=== PATIENT | male | born 1960 | race Caucasian/White ===

== ENCOUNTER 2019-10-27 14:08 | Emergency (ER) | payer BC, SELFPAY ==
[2019-10-27 14:23] VITALS: BP 134/80; PULSE 81; RESP 16; TEMP 36.3; O2SAT 99
--- NOTE | 2019-10-27 14:27 | ED.GENADULT ---
HPI - General Adult General Chief complaint: Wound/Laceration Stated complaint: laceration on wrist Time Seen by Provider: 10/27/19 14:28 Source: patient Mode of arrival: ambulatory Limitations: no limitations History of Present Illness HPI narrative: 59-year-old male patient presents to the [facility] with complaints of a laceration to the left wrist. 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 Patient unsure when his last tetanus shot was. Patient denies any numbness or tingling. Patient states he did clean the wound with hydrogen peroxide prior to coming in today. Related Data Home Medications Medication Instructions Recorded Confirmed lisinopril 20 mg DAILY 10/27/19 10/27/19 metformin 500 mg BID 10/27/19 10/27/19 Allergies Allergy/AdvReac Type Severity Reaction Status Date / Time No Known Allergies Allergy Verified 10/27/19 14:18 Review of Systems Review of Systems: Narrative: CONSTITUTIONAL: Denies fever, chills, or sweats. EYES: Denies visual changes, redness, or discharge. ENT: Denies rhinorrhea, congestion, sore throat, or otalgia. CARDIOVASCULAR: Denies chest pain, palpitations, or edema. RESPIRATORY: Denies cough or dyspnea. GASTROINTESTINAL: Denies abdominal pain, nausea, vomiting, or diarrhea. GENITOURINARY: Denies dysuria or hematuria. SKIN: Denies rash or itching. Positive laceration to left wrist MUSCULOSKELETAL: Denies back pain, joint pain, or myalgia. NEUROLOGIC: Denies headache, numbness, or weakness. PSYCHIATRIC: Denies anxiety or depression. [facility] Family History Family History Other Diabetes mellitus Social History Social History Smoking status: Former smoker Alcohol intake: never Gender identity (if verbalized by the patient): Male Comments At the time of my signature I agree with nursing past medical history, surgical, social, and family history. There is no relevant family history pertinent to the presenting complaint. Exam Narrative: Exam Narrative: GENERAL: Well-appearing, well-nourished, and in no acute distress. HEAD: Normocephalic, atraumatic. EYES: PERRLA and EOMI. ENT: Nares clear, no rhinorrhea or epistaxis. Mucous membranes moist. NECK: Supple. No lymphadenopathy CHEST: Clear to auscultation. No respiratory distress. HEART: Regular rate and rhythm. No murmur heard. Normal peripheral pulses. ABDOMEN: Soft, nontender, nondistended, normal active bowel sounds. EXTREMITIES: Normal range of motion. No edema. SKIN: Warm, dry, no rash. Patient has approximately 2 cm laceration to the wrist on the anterior side on the ulnar side. There is no active bleeding at this time. Patient has excellent range of motion to all fingers, and wrist. No numbness or tingling noted. NEURO: No focal deficits. Alert and oriented x3. Course Vital Signs Vital signs: Vital Signs Temperature 36.3 C L 10/27/19 14:23 Pulse Rate 81 10/27/19 14:23 Respiratory Rate 16 10/27/19 14:23 Blood Pressure 134/80 10/27/19 14:23 Pulse Oximetry 99 10/27/19 14:23 Temperature 36.3 C L 10/27/19 14:23 Pulse Rate 81 10/27/19 14:23 Respiratory Rate 16 10/27/19 14:23 Blood Pressure 134/80 10/27/19 14:23 Pulse Oximetry 99 10/27/19 14:23 Vital signs reviewed. The patient has been informed that they may have pre-hypertension or Hypertension based on a BP reading in the department. I recommend that the patient call the primary care provider listed on their discharge instructions or a physician of their choice this week to arrange follow up for further evaluation of possible pre-hypertension or Hypertension Procedures Laceration Laceration 1: Date: 10/27/19 Time: 14:38 Site: upper extremity (Left wrist) Side (If applicable): left Size (cm): 2 Description: linear Depth: simple, single layer
[2019-10-27] MEDS: TETANUS,DIPHTHERIA,AC PERTUSSIS ADULT 0.5 ML (ADACEL) IM (14:28)
== END 2019-10-27 15:05 | disposition home or self-care (01) ==
PROVIDERS: Emergency Provider Nurse Practitioner Family
DX: S61.512A Laceration without foreign body of left wrist, initial encounter (principal); W29.8XXA Contact with other powered hand tools and household machinery, initial encounter; Z23 Encounter for immunization; Z87.891 Personal history of nicotine dependence; I10 Essential (primary) hypertension; E78.00 Pure hypercholesterolemia, unspecified
CPT/HCPCS: 12001; 90471; 90715; 99213; G0463